=== PATIENT | female | born 1970 | race Caucasian/White ===

== ENCOUNTER 2016-10-19 19:53 | Inpatient (IN) | payer MEDICAID ==
[~2016-10-19] VITALS: Ht 157.5 cm; Wt 99.8 kg
[~2016-10-19 19:53] MED LIST: CEPHALEXIN500 M1 PO; NORCO 325 MG-51 TAB PO; PERCOCET 325 MG1 TA2 PO; ULTRAM 50MG TAB50 MG PO; ZANTAC 150 EFF150 M1 PO
[2016-10-20] VITALS (16 sets, daily range): BP systolic 115–173; BP diastolic 66–96; PULSE 68–104; TEMP 97.3–99.2
[2016-10-20] MEDS ORDERED: PERCOCET 325 MG1 TA2 PO (01:09)
[2016-10-20] MEDS ORDERED: FLEXERIL5 MG PO (01:10)
[2016-10-20 08:02] LABS: ADJUSTED CALCIUM 9.4 mg/dL (8.4-10.2); ALANINE AMINOTRANSFERASE 24 U/L (9-52); ALBUMIN 3.7 gm/dL (3.5-5.0); ALKALINE PHOSPHATASE 135 U/L (50-136); ANION GAP 11 mmol/L (7-16); BILIRUBIN,TOTAL 2.1 mg/dL (0.0-1.0); BLOOD UREA NITROGEN 11 mg/dL (7-17); CALCIUM 9.2 mg/dL (8.4-10.2); CARBON DIOXIDE 24 mmol/L (22-30); CHLORIDE 102 mmol/L (98-107); CREATININE, serum 0.64 mg/dL (0.52-1.25); GLUCOSE 95 mg/dL (74-106); POTASSIUM 3.6 mmol/L (3.4-5.0); SODIUM 137 mmol/L (137-145); TOTAL PROTEIN 7.2 gm/dL (6.4-8.2)
[2016-10-20 08:10] LABS: C-REACTIVE PROTEIN < 0.5 mg/dL (0.0-0.9)
[2016-10-20 08:25] LABS: CHOLESTEROL 168 mg/dL (120-200); HDL CHOLESTEROL 57 mg/dL; LDL CHOLESTEROL 96 mg/dL; TRIGLYCERIDE 77 mg/dL
[2016-10-20 12:00] LABS: BASO # 0.1 (0.0-0.2); BASO % 1.2 % (0.0-2.0); EOS # 0.2 (0.0-0.7); EOS % 3.9 % (0-4.0); GRAN # 2.5 (1.4-6.5); GRAN % 50.7 % (42.2-75.2); LYMPH # 1.8 (1.2-3.4); LYMPH % 37.2 % (20.0-51.0); MEAN CELL VOLUME 72 fl (80.0-100.0); MEAN CORPUSCULAR HGB CONC 30 g/dl (33.0-37.0); MEAN PLATELET VOLUME 9.4 fl (7.4-10.4); MONO # 0.3 (0.1-0.6); MONO % 6.8 % (1.7-9.3); PLATELET COUNT 407 K/mm3 (130-400); RED BLOOD COUNT 4.58 M/mm3 (4.10-5.30); REDCELL DISTRIBUTION WIDTH-CV 16.4 % (11.5-14.5); WHITE BLOOD COUNT 4.9 K/mm3 (4.8-10.8)
[2016-10-20 12:02] LABS: HEMATOCRIT 33.1 % (37.0-47.0); HEMOGLOBIN 9.9 g/dl (12.5-16.0); MEAN CORPUSCULAR HEMOGLOBIN 22 pg (27.0-31.0)
[2016-10-21 03:18] VITALS: BP 151/81; PULSE 78; TEMP 97.7
[2016-10-21 07:26] LABS: FACTOR V LEIDEN MUTATION B Negative (Negative); PT G20210A MUTATION B Heterozygous (Negative); PT INTERP HET 1 (())
[2016-10-21 07:35] VITALS: BP 129/82; PULSE 92; TEMP 98.1
[2016-10-21 08:11] VITALS: BP 141/81; PULSE 81; TEMP 98.2
[2016-10-21] MEDS ORDERED: PLAVIX 75MG TAB75 MG PO (09:37)
[2016-10-21] MEDS ORDERED: CEPHALEXIN500 M1 PO (09:37)
[2016-10-21] MEDS ORDERED: HCTZ12.5TAB PO (09:38)
[2016-10-21] MEDS ORDERED: ASPIRIN 32325 MG/TAB PO (09:38)
[2016-10-21 11:05] VITALS: BP 122/81; PULSE 90; TEMP 97.1
[2016-10-21 12:14] VITALS: BP 128/85; PULSE 87; TEMP 98.1
[2016-10-21 15:41] VITALS: BP 127/91; PULSE 102; TEMP 98.4
[2016-10-22 15:51] LABS: LUPUS ANTICOAGULANT INR 1.1 (()); LUPUS ANTICOAGULANT PT 12.6 sec (()); LUPUS ANTICOAGULANT PTT 31 sec (26 - 36)
[2016-10-22 17:33] LABS: .ANTICARDIOLIPIN IGG <9.4 GPL (()); .ANTICARDIOLIPIN IGM <9.4 MPL (())
[2016-10-24 11:02] LABS: PROTEIN C ACTIVITY 93 % (70-150)
[2016-10-24 13:59] LABS: PROTEIN S ACTIVITY 61 % (50-160)
== END 2016-10-21 16:10 | disposition home or self-care (01) | DRG 41 ==
LOC: MEDICAL 19:53
PROVIDERS: Nurse Practitioner Family; Psychiatry & Neurology Neurology
PROC: 0JH632Z Insertion of Monitoring Device into Chest Subcutaneous Tissue and Fascia, Percutaneous Approach (ICD-10-PCS; principal; 2016-10-20)
DX: I63.8 Other cerebral infarction (principal); G81.91 Hemiplegia, unspecified affecting right dominant side; Q21.1 Atrial septal defect; R47.81 Slurred speech; Z98.84 Bariatric surgery status; I10 Essential (primary) hypertension
CPT/HCPCS: 99223-AI; 99239; C1764; G8999-GN; G9186-GN; J2704

== ENCOUNTER 2020-12-07 11:48 | Emergency (ER) | payer OTHER ==
[~2020-12-07] VITALS: Ht 157.5 cm; Wt 103.2 kg
[~2020-12-07 11:48] MED LIST changes: +ASPIRIN 32325 MG/TAB PO; +FLEXERIL5 MG PO; +HCTZ12.5TAB PO; +PLAVIX 75MG TAB75 MG PO
[2020-12-07 11:53] VITALS: TEMP 97
[2020-12-07 12:17] LABS: BASO # 0.1 (0.0-0.2); BASO % 1.4 % (0.0-2.0); EOS # 0.1 (0.0-0.7); EOS % 2.4 % (0-4.0); GRAN # 2.8 (1.4-6.5); GRAN % 56.5 % (42.2-75.2); HEMATOCRIT 45.6 % (37.0-47.0); HEMOGLOBIN 15.2 g/dl (12.5-16.0); LYMPH # 1.6 (1.2-3.4); LYMPH % 32.5 % (20.0-51.0); MEAN CELL VOLUME 89 fl (80.0-100.0); MEAN CORPUSCULAR HEMOGLOBIN 30 pg (27.0-31.0); MEAN CORPUSCULAR HGB CONC 33 g/dl (33.0-37.0); MEAN PLATELET VOLUME 9.8 fl (7.4-10.4); MONO # 0.3 (0.1-0.6); MONO % 6.8 % (1.7-9.3); PLATELET COUNT 281 K/mm3 (130-400); RED BLOOD COUNT 5.12 M/mm3 (4.10-5.30); REDCELL DISTRIBUTION WIDTH-CV 12.2 % (11.5-14.5)
[2020-12-07] MEDS ORDERED: PEPCID 20MG TAB20 MG (12:18)
[2020-12-07] MEDS ORDERED: ELIQUIS 2.5 PO (12:19)
[2020-12-07] MEDS ORDERED: VITRON-C (12:21)
[2020-12-07 12:28] LABS: ALANINE AMINOTRANSFERASE 23 U/L (4-34); ALKALINE PHOSPHATASE 118 U/L (50-136); ANION GAP 7 mmol/L (7-16); AST,SGOT 26 U/L (15-37); BILIRUBIN,TOTAL 0.9 mg/dL (0.0-1.0); BLOOD UREA NITROGEN 11 mg/dL (7-17); CALCIUM 9.2 mg/dL (8.4-10.2); CARBON DIOXIDE 27 mmol/L (22-30); CHLORIDE 107 mmol/L (98-107); GLUCOSE 104 mg/dL (74-106); SODIUM 141 mmol/L (137-145); TOTAL PROTEIN 7.7 gm/dL (6.4-8.2)
[2020-12-07 12:43] LABS: TROPONIN-I < 0.012 ng/mL (0.000-0.035)
[2020-12-07 13:26] LABS: COLLECTION METHOD CLEAN CATCH
[2020-12-07 13:51] LABS: MUCOUS Present /lpf; PH 7 (5-8); URINE APPEARANCE Hazy; URINE BACTERIA Rare /hpf; URINE BILIRUBIN Negative (NEGATIVE); URINE BLOOD 1+ (NEGATIVE); URINE COLOR Yellow; URINE GLUCOSE Negative (NEGATIVE); URINE KETONE Negative (NEGATIVE); URINE LEUKOCYTE ESTERASE Negative (NEGATIVE); URINE NITRATE Negative (NEGATIVE); URINE PROTEIN(semi-quant) Negative (NEGATIVE); URINE UROBILINOGEN Negative (NEGATIVE)
[2020-12-07] MEDS ORDERED: NORVASC 5MG5 MG/TAB PO (14:06)
[2020-12-07 14:18] VITALS: BP 195/109; PULSE 75
== END 2020-12-07 14:21 | disposition home or self-care (01) ==
LOC: COL.ER 11:48
PROVIDERS: Emergency Medicine
DX: I10 Essential (primary) hypertension (principal); Z79.01 Long term (current) use of anticoagulants; Z86.73 Personal history of transient ischemic attack (TIA), and cerebral infarction without residual deficits; Z88.6 Allergy status to analgesic agent; Z88.8 Allergy status to other drugs, medicaments and biological substances